=== PATIENT | male | born 1945 | race American Indian/Alaskan Native ===

== ENCOUNTER 2019-09-02 06:44 | Day surgery (SDC) | payer MEDICARE, OTHER ==
[2019-09-02] MEDS ORDERED: ASPIRIN EC 325 MG TAB PO ONE (07:30)
[2019-09-02] MEDS: SODIUM CHLORIDE 0.9% 500 ML 500 ML IV SCH ×2 (07:46→09:55)
[2019-09-02 07:50] LABS: Basophils % (Auto) 0.5 % (0.0-1.8); Eosinophils # (Auto) 0.2 K/mm3 (0.0-0.4); Eosinophils % (Auto) 2.9 % (0.0-4.3); Hematocrit 33.2 % (35.5-45.6); Hemoglobin 11.2 gm/dl (11.8-15.2); Lymphocytes # (Auto) 1.6 K/mm3 (1.2-5.4); Lymphocytes % (Auto) 26.1 % (13.4-35.0); Mean Corpuscular HGB Conc 34 % (32-34); Mean Corpuscular Volume 88 fl (84-94); Monocytes # (Auto) 0.7 K/mm3 (0.0-0.8); Monocytes % (Auto) 12.2 % (0.0-7.3); Platelet Count 201 K/mm3 (140-440); Red Blood Count 3.76 M/mm3 (3.65-5.03); Red Cell Distribution Width 15.2 % (13.2-15.2)
[2019-09-02 08:01] LABS: INR 1.05 (0.87-1.13)
[2019-09-02 08:23] LABS: BUN/Creatinine Ratio 13; Blood Urea Nitrogen 16 mg/dL (9-20); Calcium 9.4 mg/dL (8.4-10.2); Hemolysis Index 4
[2019-09-02] MEDS ORDERED: CLOPIDOGREL 75 MG TAB PO ONE (08:33)
[2019-09-02] MEDS ORDERED: CLOPIDOGREL 75 MG TAB ONE (08:36)
[2019-09-02] MEDS ORDERED: HEPARIN 10,000 UNITS/10 ML VIAL ONE (09:29)
[2019-09-02] MEDS ORDERED: HEPARIN/NS 5000 UNIT/500ML 1,000 ML IR ONE (09:29)
[2019-09-02] MEDS: fentaNYL 100 MCG/2 ML INJ ONE ×2 (09:53→10:08)
[2019-09-02] MEDS: MIDAZOLAM 2 MG/2 ML INJ ONE ×2 (09:54→10:08)
[2019-09-02] MEDS: LIDOCAINE (2%) 20 MG/1 ML VIAL 20 ML MDV INFILTRATI ONE ×2 (09:55→10:09)
--- NOTE | 2019-09-02 11:23 | Discharge Summary ---
Short Stay Discharge Plan Activity: advance as tolerated Weight Bearing Status: Partial Weight Bearing Diet: low fat, low cholesterol, low salt, diabetic Wound: keep clean and dry Special Instructions: no heavy lifting (3 days), hold Metformin (48hrs) Additional Instructions: HOLD METFORMIN FOR 48HRS ONLY Follow up with: [facility] [Primary Care Provider] - 7 Days DAVID BARKER MD [Staff Physician] - 7 Days
--- NOTE | 2019-09-02 11:27 | Cardiac Catherization Report ---
CARDIAC CATHETERIZATION REPORT REASON FOR PROCEDURE: Coronary artery disease, abnormal thallium stress test. The patient has a history of 4-vessel coronary artery bypass reportedly done in 1998. During recent evaluations, he was also noted with mild aortic stenosis on echocardiography. He was recommended for cardiac catheterization. We proceeded to perform a right and left heart catheterization. PROCEDURES: 1. Right heart catheterization. 2. Left heart catheterization. 3. Selective left and right coronary angiography. 4. Left ventricular angiography. 5. Angiography of the left internal mammary artery graft to the LAD. 6. Angiography of the saphenous vein grafts x 3. 7. Left ventricular angiography. 8. Sedation time, start 10:06, end 10:43. DESCRIPTION OF PROCEDURE: The patient was prepped and draped in a sterile fashion after informed consent. The right femoral artery and vein were both entered using Seldinger technique. A 6-Bahamian sheath was inserted into the artery and an 8-Bahamian sheath in the vein. A Taloga-Antione catheter was advanced to the pulmonary artery position. A dual lumen pigtail catheter was advanced into the left ventricle. Cardiac output was measured using thermodilution method. We then performed simultaneous right and left heart filling pressures, following which the pigtail was withdrawn and right heart pressures recorded on pullback. Simultaneous left ventricular systolic and ascending aortic pressures were then recorded using the dual lumen pigtail catheter. Following this, left ventricular angiography was performed following which the pigtail catheter was withdrawn. Selective left and right coronary angiography was performed using #4 left and right Uriel catheters. The right Uriel was used for saphenous vein graft angiography. We then exchanged for a left internal mammary artery catheter for left internal mammary graft angiography. The catheters were then withdrawn, the sheaths were withdrawn, hemostasis and across the arterial sheath site was done using an Angio-Seal device and across the venous site using manual compression. The patient was returned to the postprocedure unit in stable condition. There were no complications. FINDINGS: HEMODYNAMICS: The mean right atrial pressure was 18. Right ventricular pressure was 50/20. Pulmonary artery pressure was 50/28. Pulmonary artery wedge pressure was 25. Left ventricular end-diastolic pressure was 25-28. Cardiac output was 4.5 liters per minute. Simultaneous left ventricular and ascending aortic pressures were recorded. The dinp-ex-owuk transaortic valve pressure was 10 mmHg. The mean gradient was 17 mmHg. Using the Gorlin equation, the aortic valve area was calculated at 1.7 square centimeters. Ascending aortic pressure was 140/67. CORONARY ANGIOGRAPHY: There was evidence of complex stenting of the left main, proximal LAD and proximal to mid AV groove circumflex artery. Angiography revealed the [place] vessels to be completely occluded at the ostium of the left main and within the extensive stenting as described. The left internal mammary artery graft to the LAD was widely patent, with good anastomosis to the mid distal LAD and good distal runoff. No lesions were noted in the LAMBERT graft and the distal LAD beyond the graft insertion. The saphenous vein graft to the mid diagonal branch of the LAD was also widely patent with no significant lesions, good anastomosis to the distal segment of the diagonal target, and good distal runoff. Another saphenous vein graft was patent with anastomosis to the mid obtuse marginal branch of the circumflex artery, good anastomosis and good distal runoff. The [place] right coronary artery was also notable for extensive stenting, from the proximal, mid and up to the acute margin. There was diffuse severe disease within the stented segment and the remaining [place] vessel in the mid and distal segments. There were several segments of 100% total occlusion with no significant distal perfusion noted. The saphenous vein graft to the right coronary artery was occluded in its proximal to mid segment with no forward flow. We noted a stent that was ostensibly previously deployed within this vein graft, located around the acute margin of the heart. The vein graft occlusion is much more proximal to this stent location at this time. The left ventricle was at least moderately dilated. There was moderate left ventricular systolic dysfunction with left ventricular ejection fraction estimated at 35-40%. CONCLUSION: 1. Mild aortic stenosis, with a mean transaortic gradient of 17, and aortic valve area of 1.7. 2. At least moderate pulmonary hypertension with pulmonary artery systolic pressure of 50. 3. Severe 3-vessel disease with occlusion of the left main and right coronary arteries. 4. Patent left internal mammary artery graft to the LAD. 5. Patent saphenous vein graft to the diagonal branch. 6. Patent saphenous vein graft to the obtuse marginal branch of the circumflex. 7. Occluded saphenous vein graft x 1 to the right coronary system. 8. Moderate left ventricular systolic dysfunction, ejection fraction 35-40%. RECOMMENDATION: 1. Aggressive risk factor modification and medical therapy for small vessel coronary artery disease and moderate severity ischemic cardiomyopathy. The [place] right coronary artery is chronically, diffusely diseased, and not amenable for any further revascularization, recommend medical therapy. JOB# [id number] SUKHDEEP/CHACHO
[2019-09-02] MEDS ORDERED: SODIUM CHLORIDE 0.9% 1000 ML 1,000 ML IV SCH (11:30)
[2019-09-02 14:04] VITALS: BP 134/71
== END 2019-09-02 15:37 | disposition home or self-care (01) ==
LOC: CATHLABREC 06:44
PROVIDERS: ATTEND Internal Medicine Cardiovascular Disease
DX: I25.810 Atherosclerosis of coronary artery bypass graft(s) without angina pectoris (principal); R94.39 Abnormal result of other cardiovascular function study; I35.0 Nonrheumatic aortic (valve) stenosis; E11.9 Type 2 diabetes mellitus without complications; G47.30 Sleep apnea, unspecified; I27.20 Pulmonary hypertension, unspecified; E78.00 Pure hypercholesterolemia, unspecified; Z11.59 Encounter for screening for other viral diseases; I10 Essential (primary) hypertension; K21.9 Gastro-esophageal reflux disease without esophagitis; D64.9 Anemia, unspecified; Z79.899 Other long term (current) drug therapy; Z79.4 Long term (current) use of insulin; Z79.82 Long term (current) use of aspirin; Z87.891 Personal history of nicotine dependence; Z98.890 Other specified postprocedural states; Z95.1 Presence of aortocoronary bypass graft; Z83.3 Family history of diabetes mellitus; Z82.49 Family history of ischemic heart disease and other diseases of the circulatory system
CPT/HCPCS: 36415; 80048; 85025; 85610; 93005; 93461; 99156; 99157; C1751; C1760; C1894; J1644; J2250; J3010; J7040; U0003; Q9967